=== PATIENT | male | born 1955 | race Caucasian/White ===

== ENCOUNTER 2021-10-06 18:21 | Emergency (ER) | payer MEDICARE, OTHER ==
[2021-10-06] MEDS ORDERED: Sodium Chloride 0.9% 10 ML Syringe FLUSH PRN (19:42)
[2021-10-06] MEDS ORDERED: Acetaminophen 500 MG Tab PO ONE (20:03)
[2021-10-06] MEDS ORDERED: Nystatin Topical Powder 30 GM Bottle TOP ONE (20:20)
[2021-10-06] MEDS ORDERED: Sodium Chloride 0.9% 1,000 ML IV ONE ×3 (20:20→21:44)
[2021-10-06 20:32] LABS: ANION GAP 15.7 mEq/L (7-13); CHLORIDE,CL 99 mmol/L (98-107); SODIUM,NA 138 mmol/L (136-145)
[2021-10-06 21:23] LABS: CORONAVIRUS COVID-19 NAA NEGATIVE (NEGATIVE)
[2021-10-06] MEDS ORDERED: Lidocaine 2% Jelly 10 ML Urojet ONE (22:00)
[2021-10-06] MEDS ORDERED: Lidocaine 2% Jelly 10 ML Urojet MUCMEM ONE (22:05)
[2021-10-06 22:24] LABS: AMPHETAMINES,URINE NEGATIVE (NEGATIVE); BARBITURATES,URINE NEGATIVE (NEGATIVE); BENZODIAZEPINE,URINE NEGATIVE (NEGATIVE); MDMA (ECSTASY), URINE NEGATIVE (NEGATIVE); METHADONE,URINE NEGATIVE (NEGATIVE); METHAMPHETAMINES,URINE NEGATIVE (NEGATIVE); OPIATES,URINE NEGATIVE (NEGATIVE); OXYCODONE,URINE NEGATIVE (NEGATIVE); PHENCYCLIDINE,URINE NEGATIVE (NEGATIVE); TCA,URINE NEGATIVE (NEGATIVE)
[2021-10-06] MEDS ORDERED: HYDROmorphone 0.5 MG/0.5 ML Syringe IVPUSH ONE (22:38)
[2021-10-06] MEDS ORDERED: cefTRIAXone 2 GM in Sodium Chloride 0.9% 100 ML IV ONE (23:20)
[2021-10-07] MEDS ORDERED: HYDROmorphone 0.5 MG/0.5 ML Syringe IVPUSH ONE ×2 (00:53→03:39)
[2021-10-07] MEDS ORDERED: Magnesium Sulfate/Water 2 GM in Premix Bag 1 BAG IV ONE (01:52)
[2021-10-07] MEDS ORDERED: Sodium Chloride 0.9% 1,000 ML IV ONE (01:55)
[2021-10-07] MEDS ORDERED: LORazepam 2 MG/ML SDV ONE (05:29)
[2021-10-07] MEDS ORDERED: LORazepam 2 MG/ML SDV IVPUSH ONE ×2 (05:50→06:51)
[2021-10-07 06:29] LABS: ANION GAP 17.3 mEq/L (7-13)
== END 2021-10-07 07:30 ==
LOC: DL.ED 18:21
DX: T81.42XA Infection following a procedure, deep incisional surgical site, initial encounter (principal); E87.2 Acidosis; B37.2 Candidiasis of skin and nail; N17.9 Acute kidney failure, unspecified; I10 Essential (primary) hypertension; J45.909 Unspecified asthma, uncomplicated; E66.01 Morbid (severe) obesity due to excess calories; Z68.36 Body mass index [BMI] 36.0-36.9, adult; Z91.048 Other nonmedicinal substance allergy status; Z96.641 Presence of right artificial hip joint; Z87.891 Personal history of nicotine dependence; Z88.5 Allergy status to narcotic agent; Z88.1 Allergy status to other antibiotic agents; Z20.822 Contact with and (suspected) exposure to COVID-19
CPT/HCPCS: 0240U; 36415; 71045; 74176; 80053; 80305-QW; 80307; 81001; 82140; 83605; 83735; 84443; 85025; 85379; 85610; 86140; 87086; 93005; 93010; 93971; 96365; 96366; 96367; 96375; 96376; 99284; 99285-25; A9270-GY; J0696; J1170; J2060; J3475; J7030